=== PATIENT | male | born 1985 | race African-American/Black ===

== ENCOUNTER 2019-10-27 14:07 | Emergency (ER) | payer SELFPAY ==
[~2019-10-27] VITALS: Ht 165.1 cm; Wt 49.9 kg
[2019-10-27] MEDS ORDERED: IV NORMAL SALINE 1,000ML 1,000 ML IV SCH (14:29)
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
[2019-10-27 14:39] LABS: BASO # 0.1 x10^3/uL (0.0-0.2); BASO % 1 % (0-3); EOS # 0.1 x10^3/uL (0.0-0.7); EOS % 1 % (0-3); HEMATOCRIT 50.3 % (39.0-53.0); HEMOGLOBIN 16.2 g/dL (13.0-17.5); LYMPH # 3.3 x10^3/uL (1.0-4.8); LYMPH % 26 % (24-48); MEAN CORPUSCULAR HEMOGLOBIN 26 pg (25-35); MEAN CORPUSCULAR HGB CONC 32 g/dL (31-37); MEAN CORPUSCULAR VOLUME 82 fL (79-100); MONO # 1.1 x10^3/uL (0.0-1.1); MONO % 9 % (0-9); NEUT # 7.9 x10^3uL (1.8-7.7); NEUT % 63 % (31-73); PLATELET COUNT 320 x10^3/uL (140-400); RED BLOOD COUNT 6.16 x10^6/uL (4.30-5.70); RED CELL DISTRIBUTION WIDTH 14.1 % (11.5-14.5); WHITE BLOOD COUNT 12.5 x10^3/uL (4.0-11.0)
[2019-10-27 14:47] LABS: ALBUMIN/GLOBULIN RATIO 1.1 (1.0-1.7); CALCIUM 9.2 mg/dL (8.5-10.1); CREATININE 0.9 mg/dL (0.7-1.3); GFR 97.8; MAGNESIUM 2.2 mg/dL (1.8-2.4); TOTAL BILIRUBIN 0.4 mg/dL (0.2-1.0); TOTAL PROTEIN 7.7 g/dL (6.4-8.2)
--- NOTE | 2019-10-27 15:15 | RAD ---
STUDY: CT head without contrast INDICATION: Altered mental status. COMPARISON: None. TECHNIQUE: Axial CT imaging through the head without the use of intravenous contrast. Sagittal and coronal reformats were obtained. One or more of the following individualized dose reduction techniques were utilized for this examination: 1. Automated exposure control 2. Adjustment of the mA and/or kV according to patient size 3. Use of iterative reconstruction technique. FINDINGS: No acute intracranial hemorrhage. Bonilla-white matter differentiation is maintained. No mass effect, midline shift or hydrocephalus. Mildly increased intrinsic density of the transverse and sagittal sinuses is favored secondary to dense blood pool as there is a similar density of the central intracranial arteries. Unremarkable orbits and scalp. Adequately pneumatized mastoid air cells and paranasal sinuses. The calvarium is intact. IMPRESSION: No acute intracranial abnormality by CT. Electronically signed by: CARMELO HONG MD (10/27/2019 3:12 PM) [facility]
[2019-10-27 15:30] LABS: BARBITURATES NEG (NEG); BENZODIAZEPINES NEG (NEG); CANNABINOIDS NEG (NEG); COCAINE NEG (NEG); METHADONE NEG (NEG); OPIATES NEG (NEG); PHENCYCLIDINE NEG (NEG)
[2019-10-27 15:34] LABS: AMPHETAMINE/METHAMPHETAMINE NEG (NEG)
[2019-10-27 15:37] VITALS: BP 117/64
[2019-10-27 15:39] LABS: BACTERIA,URINE 0 /HPF (0-FEW); BILIRUBIN,URINE NEG (NEG); CLARITY,URINE CLEAR; COLOR,URINE YELLOW; GLUCOSE,URINE NEG (NEG); NITRITE,URINE NEG (NEG); RBC,URINE OCC /HPF (0-2); SQUAMOUS EPITHELIAL CELL,UR OCC /LPF; UROBILINOGEN,URINE 0.2 mg/dL (0.2 mg/dL); WBC,URINE OCC /HPF (0-4)
--- NOTE | 2019-10-28 13:04 | EKG ---
[address] [address] Test Date: 2019-10-27 Test Time: 14:24:53 Pat Name: CORWIN CHEEK Department: Room: Gender: M [employer]: : 1985 Requested By: ALLY MAYFIELD Order Number: [id number] Reading MD: Alexandre Duffy MD Measurements Intervals [place] Rate: 62 P: 51 MA: 140 QRS: 64 QRSD: 80 T: 54 QT: 384 QTc: 392 Interpretive Statements SINUS RHYTHM Electronically Signed On 10-30-2019 11:07:39 [employer] by Alexandre Duffy MD
== END 2019-10-27 15:32 | disposition home or self-care (01) ==
LOC: EDSEX 14:07 → ER 14:07
DX: R41.82 Altered mental status, unspecified (principal); F12.10 Cannabis abuse, uncomplicated; F15.10 Other stimulant abuse, uncomplicated
CPT/HCPCS: 36415; 70450; 80053; 80307; 81001; 83735; 84484; 85025; 93005; 96360; 99285; G0480; J7030